=== PATIENT | male | born 1950 | race Caucasian/White ===

== ENCOUNTER 2018-06-11 12:42 | Emergency (ER) | payer OTHER ==
[2018-06-11 13:08] LABS: PLATELET COUNT 242 10^3/uL (150-400)
--- NOTE | 2018-06-11 13:12 | EDPHY ---
HPI/HX/ROS/PE/MDM Narrative: CHIEF COMPLAINT: Near-syncope, chest pain HPI: This is a 68 y/o male who visiting from [place] and is a poor historian and arrives via EMS with his daughter for evaluation of a near-syncopal episodes with associated chest pain about 1 hour prior to assessment here. His daughter reports he got out of the car and then reported feeling dizzy with chest pain and sat down on the pavement. He then started yawning frequently and lied down complaining of feeling quite poor. At this time his daughter contacted EMS. The patient mentions a similar episode happened two months while he was at home in [place] and he was evaluated in the ED. He has difficulty telling me what tests they performed, though it sounds like he had CTAs and potentially a cardiac catheterization. He cannot tell me the results of these tests. He currently reports he feels much better and is denying any specific complaints. No report of recent illness or trauma. REVIEW OF SYSTEMS: A comprehensive 10 system review of systems is otherwise negative aside from elements mentioned in the history of present illness. PMH: Hospitalization 2 months ago for similar symptoms - no further definite details obtainable from patient. Per records from [facility] - hypercholesterolemia , BPH, hernia repair, parotidectomy. SOCIAL HISTORY: Visiting from [place], arrived this morning. Daughter at bedside. Nonsmoker. PHYSICAL EXAM: General:Patient is alert, in no acute distress. ENT:Eyes are normal to inspection. ENT inspection normal. Neck: Normal inspection. Full range of motion. Respiratory:No respiratory distress. Breath sounds normal bilaterally. Cardiovascular: Regular rate and rhythm. Strong peripheral pulses. Normal cap refill. Abdomen:The abdomen is nontender to palpation. There are no peritoneal signs. Back: Normal to inspection. No tenderness to palpation. Skin: Normal color. No rash. Warm and dry. Extremities: Normal appearance. Full range of motion. Neuro: Oriented x3. Normal motor function. Normal sensory function. ED Course: This is a 68 y/o male who is unable to definitively tell me much about his medical history and presents after a near-syncopal event with associated dizziness and chest pain this morning. Symptoms have largely improved upon assessment. Exam is unremarkable. Plan for IV, labs, EKG. Will attempt to obtain records from [facility] regarding his recent visit there with similar symptoms. The 12 lead EKG was interpreted by myself. Sinus rhythm. RBBB. See hard copy and /or "tracemaster" electronic copy for interpretation. POC troponin negative. 1550: Records from [facility] show: The patient was admitted on 03/21/18 for a near- syncopal episode upon standing up from a haircut. He was found to have an elevated troponin and went for cardiac catheterization that was ultimately unremarkable. During the same visit he had a negative head CT and normal echo. Comparing EKG today from February shows a new RBBB. Reevaluated patient and discussed findings and past records. D-dimer: MDM: This patient presents after near syncopal episode that appears to be most likely related to a number of factors including dehydration, exposure to hot weather, and [place]. Complicating his presentation is report of somewhat recent hospitalization a few months ago in [place]. Patient initially mentioned that he was admitted and had numerous tests done but was unable to give me essentially any details. We finally obtained records from the outside hospital which indicate that the patient had an elevated troponin but clean cath. Here in the ED he is asymptomatic after 1LNS, and has negative troponin, negative d-dimer and other labs. He would like to be discharged. He understands that the etiology of his symptoms is unknown. - Data Points Laboratory Results: Laboratory Results 06/11/18 13:00 06/11/18 13:00 06/11/18 06/11/18 06/11/18 13:00 13:00 13:00 WBC 6.93 10^3/uL 10^3/uL (3.80-9.50) RBC 4.23 10^6/uL L 10^6/uL (4.40-6.38) Hgb 13.5 g/dL L g/dL (13.7-17.5) Hct 39.1 % L % (40.0-51.0) MCV 92.4 fL fL (81.5-99.8) MCH 31.9 pg pg (27.9-34.1) MCHC 34.5 g/dL g/dL (32.4-36.7) RDW 12.3 % % (11.5-15.2) Plt Count 242 10^3/uL 10^3/uL (150-400) MPV 10.4 fL fL (8.7-11.7) Neut % (Auto) 51.9 % % (39.3-74.2) Lymph % (Auto) 37.4 % % (15.0-45.0) [place] % (Auto) 7.8 % % (4.5-13.0) Eos % (Auto) 2.0 % % (0.6-7.6) Baso % (Auto) 0.9 % % (0.3-1.7) Nucleat RBC Rel Count 0.0 % % (0.0-0.2) Absolute Neuts (auto) 3.60 10^3/uL 10^3/uL (1.70-6.50) Absolute Lymphs (auto) 2.59 10^3/uL 10^3/uL (1.00-3.00) Absolute Monos (auto) 0.54 10^3/uL 10^3/uL (0.30-0.80) Absolute Eos (auto) 0.14 10^3/uL 10^3/uL (0.03-0.40) Absolute Basos (auto) 0.06 10^3/uL 10^3/uL (0.02-0.10) Absolute Nucleated RBC 0.00 10^3/uL 10^3/uL (0-0.01) Immature Gran % 0.0 % % (0.0-1.1) Immature Gran # 0.00 10^3/uL 10^3/uL (0.00-0.10) D-Dimer 0.43 ug/mLFEU ug/mLFEU (0.00-0.50) Sodium 139 mEq/L mEq/L (135-145) Potassium 4.1 mEq/L mEq/L (3.3-5.0) Chloride 101 mEq/L mEq/L (97-110) Carbon Dioxide 28 mEq/l mEq/l (22-31) Anion Gap 10 mEq/L mEq/L (8-16) BUN 13 mg/dL mg/dL (7-23) Creatinine 0.9 mg/dL mg/dL (0.7-1.3) Estimated GFR > 60 Glucose 118 mg/dL H mg/dL (70-100) Calcium 10.2 mg/dL mg/dL (8.5-10.4) POC Troponin I 06/11/18 12:56 WBC RBC Hgb Hct MCV MCH MCHC RDW Plt Count MPV Neut % (Auto) Lymph % (Auto) [place] % (Auto) Eos % (Auto) Baso % (Auto) Nucleat RBC Rel Count Absolute Neuts (auto) Absolute Lymphs (auto) Absolute Monos (auto) Absolute Eos (auto) Absolute Basos (auto) Absolute Nucleated RBC Immature Gran % Immature Gran # D-Dimer Sodium Potassium Chloride Carbon Dioxide Anion Gap BUN Creatinine Estimated GFR Glucose Calcium POC Troponin I 0.00 ng/mL ng/mL (0.00-0.08) Medications Given: Discontinued Medications Sodium Chloride (Ns) 1,000 mls @ 0 mls/hr IV EDNOW ONE; Wide Open PRN Reason: Protocol Stop: 06/11/18 13:30 Last Admin: 06/11/18 13:36 Dose: 1,000 mls Point of Care Test Results: Chemistry 06/11/18 12:56 POC Troponin I 0.00 ng/mL ng/mL (0.00-0.08) General Time Seen by Provider: 06/11/18 12:53 Initial Vital Signs: Initial Vital Signs Temperature (C) 36.9 C 06/11/18 12:50 Heart Rate 103 H 06/11/18 12:50 Respiratory Rate 16 06/11/18 12:50 Blood Pressure 130/80 H 06/11/18 12:50 O2 Sat (%) 94 06/11/18 12:50 O2 Delivery Mode Room Air Allergies/Adverse Reactions: No Known Allergies Allergy (Unverified 06/11/18 12:49) Home Medications: Medication Instructions Recorded Anxiety Medication 06/11/18 Pravastatin Sodium 06/11/18 Departure - Departure Disposition: Home, Routine, Self-Care Clinical Impression: Near syncope Condition: Good Instructions: Near Syncope (ED) Additional Instructions: Follow up with your primary care provider upon your return home. Return to the ED for worsening of condition. Referrals: Sorin Sadler MD [Medical Doctor] - As per Instructions Report Scribed for: Nixon Oliver Report Scribed by: Joanna Del Valle Date of Report: 06/11/18 Time of Report: 14:40 Physician Review and Approval Statement: Portions of this note were transcribed by an ED scribe. I personally performed the history, physical exam, and medical decision making; and confirm the accuracy of the information in the transcribed note.
[2018-06-11] MEDS: NS 1,000 ML IV ONE (13:36)
[2018-06-11 16:26] VITALS: BP 116/77
--- NOTE | 2018-06-11 20:02 | CPEKG ---
Test Reason : OPEN Blood Pressure : / mmHG Vent. Rate : 097 BPM Atrial Rate : 097 BPM P-R Int : 179 ms QRS Dur : 145 ms QT Int : 396 ms P-R-T Axes : 050 -32 034 degrees QTc Int : 503 ms Sinus rhythm Right bundle branch block Confirmed by Jaziel Casarez ([id number]) on 06/11/2018 8:01:39 PM Referred By: Confirmed By:Jaziel Casarez
== END 2018-06-11 16:42 | disposition home or self-care (01) ==
DX: R55 Syncope and collapse (principal)
CPT/HCPCS: 84484-PO